=== PATIENT | male | born 1945 | race Caucasian/White ===

== ENCOUNTER 2016-09-05 11:23 | Emergency (ER) | payer OTHER ==
[~2016-09-05] VITALS: Ht 175.3 cm; Wt 59.0 kg
[2016-09-05 11:30] VITALS: BP 136/72
[2016-09-05] MEDS ORDERED: ONDANSETRON HCL 4 MG/2 ML VIAL IM ONE (12:15)
[2016-09-05] MEDS ORDERED: MORPHINE SULFATE 4 MG/ML SYRG IM ONE (12:15)
== END 2016-09-05 13:58 | disposition home or self-care (01) ==
LOC: ER 11:23 → EDBD 11:23 → ER 13:58
DX: M54.5 Low back pain (principal); C79.51 Secondary malignant neoplasm of bone; G89.29 Other chronic pain; Z85.048 Personal history of other malignant neoplasm of rectum, rectosigmoid junction, and anus
CPT/HCPCS: 72131; 96372; 99284; J2270; J2405